=== PATIENT | male | born 1945 | race Native Hawaiian/Other Pacific Islander ===

== ENCOUNTER 2018-07-10 18:16 | Emergency (ER) | payer OTHER ==
[~2018-07-10] VITALS: Ht 182.9 cm; Wt 85.7 kg
[2018-07-10 18:34] LABS: PLATELET COUNT 176 K/uL (142-355)
[2018-07-10 18:43] LABS: POTASSIUM 4.3 mmol/L (3.6-5.2)
[2018-07-10 19:50] VITALS: BP 133/61; TEMP 98.1
[2018-07-10] MEDS ORDERED: ASPIRIN 81 LOW81 MG PO (20:56)
[2018-07-10] MEDS ORDERED: LUBI24CA PO (20:56)
[2018-07-10] MEDS ORDERED: IPRAAER INH (20:59)
[2018-07-10] MEDS ORDERED: DIVA250T2 PO (21:00)
[2018-07-10] MEDS ORDERED: DIVA500T2 PO (21:00)
[2018-07-10] MEDS ORDERED: GABA300C2 PO (21:01)
[2018-07-10] MEDS ORDERED: FURO40TA93 PO (21:01)
[2018-07-10] MEDS ORDERED: GEODON60 MG PO (21:02)
[2018-07-10] MEDS ORDERED: IBU400 MG PO (21:02)
[2018-07-10] MEDS ORDERED: SITA50TA2 PO (21:03)
[2018-07-10] MEDS ORDERED: CLON0.5T36 PO ×2 (21:03→21:04)
[2018-07-10] MEDS ORDERED: KLOR-CON M2020 MEQ PO (21:06)
[2018-07-10] MEDS ORDERED: MILK OF MA2400 MG/10 PO (21:06)
[2018-07-10] MEDS ORDERED: MYRBETRIQ25 MG PO (21:07)
[2018-07-10] MEDS ORDERED: OMEPRAZOLE20 M1 PO (21:07)
[2018-07-10] MEDS ORDERED: PROPRANOLOL10 MG PO (21:08)
[2018-07-10] MEDS ORDERED: ROPINIROLE1 MG PO (21:09)
[2018-07-10] MEDS ORDERED: SIMV20TA2 PO (21:09)
[2018-07-10] MEDS ORDERED: TRAM50TA PO (21:10)
[2018-07-10] MEDS ORDERED: TRAZODONE HYDRO50 MG PO (21:10)
== END 2018-07-10 19:50 | disposition other institution (70) ==
LOC: ED 18:16
PROVIDERS: Family Medicine
DX: F20.89 Other schizophrenia (principal); F31.89 Other bipolar disorder; F41.8 Other specified anxiety disorders; R56.9 Unspecified convulsions; Z04.6 Encounter for general psychiatric examination, requested by authority
CPT/HCPCS: 36415; 80053; 85027; 93005; 99285